=== PATIENT | female | born 1975 | race Caucasian/White ===

== ENCOUNTER 2017-04-16 16:09 | Emergency (ER) | payer BC ==
[~2017-04-16] VITALS: Ht 160 cm; Wt 104.3 kg
--- NOTE | 2017-04-16 16:15 | NUR ---
Pt ambulated to bed 5
[2017-04-16 16:19] VITALS: BP_SYST 162
--- NOTE | 2017-04-16 16:20 | NUR ---
Pt AAOx4 ambulated into ED c/o R arm numbness and tingling today during work meeting. Pt states she was sitting down with her arms on chair rests when she suddenly felt like "there was a tight rubber band tied around my upper arm." Pt states R lower arm was pale, purple, and cold with 7/10 pain during incident lasting for 30 seconds. Pt denies pain jany, +CMS, cap refill<3. No deformities noted on site. No other injuries/complaints per pt/noted. Will continue to monitor.
--- NOTE | 2017-04-16 16:27 | NUR ---
ER RICKY Phelps examining patient.
[2017-04-16] MEDS ORDERED: KETOROLAC TROMETHAMINE 60 MG/2 ML VIAL IM ONE (16:45)
--- NOTE | 2017-04-16 16:45 | NUR ---
Medication administered. Pt tolerated well. No adverse reactions noted.
[2017-04-16 16:58] LABS: BASOPHILS % (AUTO) 0.4 % (0.0-2.0); EOSINOPHILS # (AUTO) 0.1 K/uL (0.0-0.4); EOSINOPHILS % (AUTO) 0.7 % (0.0-4.0); HEMOGLOBIN 15.7 g/dL (12.0-16.0); LYMPHOCYTES # (AUTO) 3.1 K/uL (1.0-5.5); MEAN CORPUSCULAR HEMOGLOBIN 28 pg (27-31); MEAN CORPUSCULAR HGB CONC 33 % (32-36); MEAN CORPUSCULAR VOLUME 85 fL (79.0-98.0); MONOCYTES # (AUTO) 0.5 K/uL (0.0-1.0); MONOCYTES % (AUTO) 4.5 % (1.7-9.3); NEUTROPHILS # (AUTO) 6.4 K/uL (1.8-7.7); NEUTROPHILS % (AUTO) 63.4 % (40.0-70.0); PLATELET COUNT (AUTO) 312 K/uL (130-430); RED BLOOD CELL COUNT(AUTO) 5.53 MIL/uL (4.2-6.2); RED CELL DISTRIBUTION WIDTH 12.8 % (9.0-15.0); WHITE BLOOD COUNT (AUTO) 10.1 K/uL (4.8-10.8)
[2017-04-16 17:08] LABS: CALCIUM 9.8 mg/dL (8.4-11.0); CREATININE 0.68 mg/dL (0.55-1.30)
[2017-04-16 17:14] LABS: ALBUMIN 4.2 g/dL (3.4-4.8); TOTAL BILIRUBIN 0.2 mg/dL (0.0-1.0)
--- NOTE | 2017-04-16 17:37 | NUR ---
Patient given written and verbal discharge instructions and verbalizes understanding. ER VISUAL MERCHANDISING ASSISTANT Mattie discussed with patient the results and treatment provided. Patient in stable condition. ID arm band removed. Rx of Motrin given. Patient educated on pain management and to follow up with PMD. Pain Scale 0. Opportunity for questions provided and answered.
[2017-04-16 17:42] VITALS: BP_SYST 154
== END 2017-04-16 17:42 | disposition home or self-care (01) ==
LOC: SED 16:09
DX: M77.11 Lateral epicondylitis, right elbow (principal); R03.0 Elevated blood-pressure reading, without diagnosis of hypertension; Z88.1 Allergy status to other antibiotic agents
CPT/HCPCS: 36415; 80053; 83036; 85025; 96372; 99284; J1885